=== PATIENT | female | born 1985 | race Caucasian/White ===

== ENCOUNTER 2022-05-05 14:00 | Outpatient (RCR) | payer OTHER, SELFPAY | END 2022-07-22 10:37 | disposition home or self-care (01) | LOC: HO.PT 14:00 | PROVIDERS: Visit Provider Nurse Practitioner Women's Health | DX: M62.9 Disorder of muscle, unspecified (principal) | CPT/HCPCS: 97110; 97140; 97162 ==

== ENCOUNTER 2023-08-03 14:30 | Outpatient (RCR) | payer OTHER, SELFPAY | END 2023-09-02 09:13 | disposition home or self-care (01) | LOC: HO.OT 14:30 | PROVIDERS: PCP Internal Medicine Infectious Disease; Visit Provider Internal Medicine Infectious Disease | DX: M25.531 Pain in right wrist (principal); M25.532 Pain in left wrist | CPT/HCPCS: 97110; 97140; 97166 ==

== ENCOUNTER 2024-07-04 14:00 | Outpatient (RCR) | payer OTHER, SELFPAY | END 2024-08-18 14:33 | disposition home or self-care (01) | LOC: HO.PT 14:00 | PROVIDERS: PCP Internal Medicine; Visit Provider Internal Medicine | DX: M99.05 Segmental and somatic dysfunction of pelvic region (principal) | CPT/HCPCS: 97110; 97112; 97140; 97162 ==